=== PATIENT | female | born 1960 | race African-American/Black ===

== ENCOUNTER 2017-02-08 17:54 | Emergency (ER) | payer OTHER ==
[~2017-02-08] VITALS: Ht 160 cm; Wt 78.8 kg
[2017-02-08 18:00] VITALS: Ht 160 cm; Wt 78.8 kg
[2017-02-08] MEDS ORDERED: DIAZEPAM 5 MG/ML SYG IM ONE (19:00)
[2017-02-08] MEDS ORDERED: MECLIZINE 12.5 MG TAB PO ONE (19:00)
--- NOTE | 2017-02-08 19:04 | RADRPT ---
PROCEDURE: CT Brain without contrast. CLINICAL INDICATION: Headaches. TECHNIQUE: A CT of the brain was performed on multidetector high-resolution CT scanner utilizing a xial sections from the skull base through the vertex without contrast. One or more of the following dose reduction techniques were used: Automated exposure control, Adjustment of the mA and/or kV acc ording to patient size, and/or use of iterative reconstruction technique. DOSE: CTDI = 45 mGy and the DLP = 720 mGy-cm. COMPARISON: None available FINDINGS: No acute intracranial hemorrhage, significant mass effect or midline shift. The sood-white different iation is grossly preserved. The ventricles are normal in size for age. No significant opacification of the visualized paranasal sinuses or mastoids. 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 IMPRESSION: No acute intracranial hemorrhage or mass effect. 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 Consider outpatient brain MRI for f ollow up. RPTAT: AA .Prashanth Colindres MD, MD Date Time Electronically viewed and signed by .Prashanth Colindres MD, on 02/08/2017 19:03 .T/
[2017-02-08] MEDS ORDERED: ONDA8TAB14 PO (19:41)
[2017-02-08] MEDS ORDERED: DIAZ10TA4 PO (19:41)
[2017-02-08] MEDS ORDERED: MECL-77 PO (19:41)
--- NOTE | 2017-02-08 19:45 | ERD ---
ER Documentation Chief Complaint Date/Time DATE: 02/08/17 TIME: 19:43 Chief Complaint DIZZINESS WITH NAUSEA ONSET MIDNIGHT HPI This is a 56-year-old female who had the onset last night at midnight with sudden severe vertigo. She says that she moves her head she gets a very strong sudden sense of spinning with nausea vomiting. She has no ringing in the ears no loss of hearing no headache no focal neurological complaints such as numbness weakness speech or visual change. No recent illness. ROS All systems reviewed and are negative except as per history of present illness. Medications Home Meds Active Scripts Diazepam* (Diazepam*) 10 Mg Tablet, 10 MG PO Q8 for vertigo, #20 TAB Prov:ERIN PATINOSTOLOS A. DO 02/08/17 Meclizine Hcl* (Meclizine Hcl*) 25 Mg Tablet, 25 MG PO TID, #30 TAB Prov:ERIN PATINOSTOLOS A. DO 02/08/17 Ondansetron (Ondansetron Odt) 8 Mg Tab.rapdis, 8 MG PO Q6H Y for NAUSEA AND/OR VOMITING, #10 TAB Prov:LEROSEMARYCHYNAERINSTOLOS A. DO 02/08/17 Allergies Allergies: Coded Allergies: No Known Allergy (Unverified , 02/08/17) PMhx/Soc History of Surgery: No Anesthesia Reaction: No Hx Neurological Disorder: No Hx Respiratory Disorders: No Hx Cardiac Disorders: No Hx Psychiatric Problems: No Hx Substance Use: No Hx Tobacco Use: No Smoking Status: Never smoker FmHx Family History: No coronary disease Physical Exam Vitals Vital Signs Date Time Temp Pulse Resp B/P Pulse Ox O2 Delivery O2 Flow Rate FiO2 02/08/17 18:00 98.1 79 20 138/78 99 Physical Exam Const: [Well-developed, well-nourished] Head: [Atraumatic, normocephalic] Eyes: [Normal Conjunctiva, PERRLA, EOMI, normal sclera, no nystagmus] ENT: [Normal External Ears, Nose and Mouth, moist mucus membranes.] Neck: [Full range of motion. No meningismus, no lymphadenopathy.] Resp: [Clear to auscultation bilaterally, no wheezing, rhonchi, rales] Cardio: [Regular rate and rhythm, no murmurs, S1 S2 present] Abd: [Soft, non tender x 4, non distended. Normal bowel sounds, no guarding or rebound, no pulsitile abdominal masses or bruits] Skin: [No petechiae or rashes, no ecchymosis , no maculopapular rash] Back: [No midline or flank tenderness] Ext: [No cyanosis, or edema, FROM x 4, normal inspection, neurovascularly intact x 4] Neur: [Awake and alert, STR 5/5 x 4, sensation intact x 4, no focal findings, cerebellum intact, patient has very severe vertigo with nausea vomiting in the room. She has lateral nystagmus. Any movement of the head will induce vertigo stronger. It is fatigable with remaining still] Psych: [Normal Mood and Affect] Results 24 hrs Current Medications Medications (Trade) Dose Ordered Sig/Shar Route PRN Reason Start Time Stop Time Status Last Admin Dose Admin Meclizine HCl (Antivert) 25 mg ONCE ONCE PO 02/08/17 19:00 02/08/17 19:01 DC 02/08/17 19:14 Diazepam (Valium) 10 mg ONCE ONCE IM 02/08/17 19:00 02/08/17 19:01 DC 02/08/17 19:14 Procedures/MDM PROCEDURE: CT Brain without contrast. CLINICAL INDICATION: Headaches. TECHNIQUE: A CT of the brain was performed on multidetector high-resolution CT scanner utilizing axial sections from the skull base through the vertex without contrast. One or more of the following dose reduction techniques were used: Automated exposure control, Adjustment of the mA and/or kV according to patient size, and/or use of iterative reconstruction technique. DOSE: CTDI = 45 mGy and the DLP = 720 mGy-cm. COMPARISON: None available FINDINGS: No acute intracranial hemorrhage, significant mass effect or midline shift. The sood-white differentiation is grossly preserved. The ventricles are normal in size for age. No significant opacification of the visualized paranasal sinuses or mastoids. 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 IMPRESSION: No acute intracranial hemorrhage or mass effect. 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 Consider outpatient brain MRI for follow up. RPTAT: AA .Prashanth Colindres MD, Date Time Electronically viewed and signed by .Prashanth Colindres MD, on 02/08/2017 19:03 .T/ CC: JAMAAL PATINO DO Patient feels better. I did tell her about the calcified cyst near the pineal gland that she needs to get MRI [facility] by her doctor. I gave her a copy of her CAT scan report Departure Diagnosis: Primary Impression: Vertigo Condition: Stable Patient Instructions: Vertigo, Unspecified Referrals: NO PRIMARY,CARE PHYSICIAN (PCP) JAMAAL PATINO DO Feb 08, 2017 19:44
[2017-02-08 19:57] VITALS: BP 128/88; PULSE 82; RESP 20; TEMP 98.1
== END 2017-02-08 20:35 | disposition home or self-care (01) ==
LOC: FTE 17:54
DX: R42 Dizziness and giddiness (principal); R11.2 Nausea with vomiting, unspecified
CPT/HCPCS: 70450; 96372; J3360; Z7502; Z7610